=== PATIENT | male | born 1965 | race Caucasian/White ===

== ENCOUNTER → 2016-08-31 | Outpatient (CLI) | payer OTHER | LOC: LAB.O 10:08 | PROVIDERS: ATTEND Family Medicine | DX: E78.2 Mixed hyperlipidemia (principal) ==

== ENCOUNTER → 2016-10-07 | Outpatient (CLI) | payer OTHER | END | disposition home or self-care (01) | LOC: LAB.O 10:02 | PROVIDERS: ATTEND Orthopaedic Surgery | DX: Z09 Encounter for follow-up examination after completed treatment for conditions other than malignant neoplasm (principal); Z47.1 Aftercare following joint replacement surgery ==

== ENCOUNTER → 2018-01-01 | Outpatient (CLI) | payer OTHER | LOC: GMAH 09:30 | PROVIDERS: ATTEND Family Medicine | DX: E78.2 Mixed hyperlipidemia (principal) ==

== ENCOUNTER → 2018-06-18 | Outpatient (CLI) | payer OTHER | LOC: LAB.O 08:32 | PROVIDERS: ATTEND Family Medicine | DX: E29.1 Testicular hypofunction (principal) ==

== ENCOUNTER → 2019-09-08 | Outpatient (CLI) | payer BC | LOC: LAB.O 08:14 | PROVIDERS: ATTEND Orthopaedic Surgery | DX: Z01.818 Encounter for other preprocedural examination (principal) ==

== ENCOUNTER 2019-10-08 | Day surgery (SDC) | payer BC | END 2019-10-08 16:50 | disposition home or self-care (01) | DX: G56.21 Lesion of ulnar nerve, right upper limb (principal); G56.01 Carpal tunnel syndrome, right upper limb; I10 Essential (primary) hypertension; Z88.5 Allergy status to narcotic agent; Z79.899 Other long term (current) drug therapy | CPT/HCPCS: 01810; 64718; 64721; 80307; J0690; J1100; J1885; J2250; J2405; J2550; J2765; J2780; J3010; J3370; J3475; J3490; J7050; J7120 ==

== ENCOUNTER 2019-10-10 | Emergency (ER) | payer BC | END 2019-10-10 19:56 | disposition short-term general hospital (02) | DX: I48.91 Unspecified atrial fibrillation (principal); R00.0 Tachycardia, unspecified; R00.2 Palpitations; Z98.890 Other specified postprocedural states; Z88.5 Allergy status to narcotic agent; Z79.82 Long term (current) use of aspirin; Z79.899 Other long term (current) drug therapy | CPT/HCPCS: 36415; 71045; 80053; 84484; 85025; 85610; 85730; 93005; J7030; J7050 ==

== ENCOUNTER → 2019-11-13 | Outpatient (CLI) | payer BC | LOC: LAB.O 08:13 | PROVIDERS: ATTEND Internal Medicine | DX: I10 Essential (primary) hypertension (principal) ==

== ENCOUNTER → 2020-04-30 | Outpatient (CLI) | payer BC ==
--- NOTE | 2020-05-03 08:14 | RAD ---
Study: Frontal and Lateral Radiographs of the Chest. Indication: HEMOPTYSIS Comparison: October 10, 2019 Impression: Heart size mildly enlarged. Subtle increased density left midlung which may reflect atelectasis or pneumonia. Short term follow up recommended versus contrast-enhanced CT chest. No pleural effusion or pneumothorax. Degenerative changes of the spine noted. Electronically signed by: Zack Dinh MD 05/03/2020 8:12 AM CDT
== END ==
LOC: YCFC.O 13:44
PROVIDERS: ATTEND Nurse Practitioner Family
DX: R04.2 Hemoptysis (principal); I10 Essential (primary) hypertension; I51.7 Cardiomegaly; R91.8 Other nonspecific abnormal finding of lung field; M47.9 Spondylosis, unspecified

== ENCOUNTER 2020-05-26 05:42 | Day surgery (SDC) | payer BC ==
[2020-05-26] MEDS ORDERED: DEXAMETHASONE INJ 10 MG/ML VIAL ONE (07:00)
[2020-05-26] MEDS ORDERED: PROPOFOL 200 MG/20 ML VIAL IV ONE (07:00)
[2020-05-26] MEDS ORDERED: LACTATED RINGERS 1,000 ML ONE (07:15)
[2020-05-26] MEDS ORDERED: SODIUM CHL 0.9% 100ML MINI-BAG 100 ML IVPB ONE (07:15)
[2020-05-26] MEDS ORDERED: ceFAZolin SODIUM 1 GM VIAL ONE (07:15)
[2020-05-26] MEDS ORDERED: BUPIVACAINE 0.25% INJ 30 ML VIAL INJ ONE (07:22)
[2020-05-26] MEDS ORDERED: LIDOCAINE 1% 10 ML VIAL INJ ONE (07:22)
[2020-05-26] MEDS ORDERED: MIDAZOLAM INJ 2 MG/2 ML VIAL ONE (07:46)
[2020-05-26] MEDS ORDERED: fentaNYL CITRATE INJ 50 MCG/ML 2 ML AMP ONE (07:46)
[2020-05-26] MEDS: ceFAZolin SODIUM 1 GM VIAL ONE ×2 (08:24→08:32)
[2020-05-26] MEDS: VANCOMYCIN HCL INJ 1,000 MG VIAL IVPB ONE ×2 (08:25→08:32)
[2020-05-26 09:07] VITALS: TEMP 97.7
[2020-05-26 09:37] VITALS: BP 119/68; O2SAT 96
--- NOTE | 2020-05-28 13:26 | OP ---
DATE OF PROCEDURE: 05/26/20 PREOPERATIVE DIAGNOSIS: 1. Carpal tunnel syndrome. POSTOPERATIVE DIAGNOSIS: 1. Carpal tunnel syndrome. PROCEDURE: 1. Carpal tunnel release. SURGEON: Dimitri Vargas MD. FISHER OYSTER: Zach Wooten CST, TERA. ANESTHESIA: Local with sedation. COMPLICATIONS: None. FINDINGS: Thickening of the transverse carpal ligament and narrowing of the median nerve across the carpal tunnel. INDICATION: Yousuf has a history of symptoms consistent with carpal tunnel syndrome. Yousuf and I have discussed the risks, benefits and alternatives to operative therapy. He has given informed consent for the above procedure. PROCEDURE: The patient was brought to the Operating Room and placed in the supine position. Sedation was administered and local anesthetic was injected into the operative area under sterile conditions. After the injection of anesthetic, the arm was sterilely prepped and draped. A longitudinal incision was made directly overlying the transverse carpal ligament and blunt dissection was carried down to the ligament. The transverse carpal ligament was sharply transected along its length and a Reeves elevator was used to ensure complete release of the ligament. Once release had been confirmed, the wound was thoroughly irrigated and the wound was closed with Nylon suture. A sterile dressing was placed and the patient was taken to the Day Surgery Unit. POSTOPERATIVE PLAN: The patient will be doing range of motion of the digits and will followup with us in two days. #[id number] [facility]
== END 2020-05-26 09:25 | disposition home or self-care (01) ==
LOC: AMB 05:42
PROVIDERS: ATTEND Orthopaedic Surgery
DX: G56.02 Carpal tunnel syndrome, left upper limb (principal); I10 Essential (primary) hypertension; E66.01 Morbid (severe) obesity due to excess calories; R00.1 Bradycardia, unspecified; Z68.41 Body mass index [BMI] 40.0-44.9, adult; Z88.5 Allergy status to narcotic agent; Z79.01 Long term (current) use of anticoagulants; Z79.899 Other long term (current) drug therapy
CPT/HCPCS: 01810; 36415; 64721; 80048; 80307; 81001; 85025; 87070; 93005; J0690; J2250; J3010; J3370; J7050; J7120

== ENCOUNTER → 2020-08-02 | Outpatient (CLI) | payer BC ==
--- NOTE | 2020-08-02 10:03 | RAD ---
EXAM DESCRIPTION: Foot,Right 3 Views CLINICAL HISTORY: PAIN IN RIGHT FOOT COMPARISON: None. TECHNIQUE: 3 views right FINDINGS: Mild degenerative changes are observed in the metatarsal phalangeal joint of the first digit. Mild distal interphalangeal joint arthritis is observed. Intertarsal arthritis is seen. Achilles and plantar enthesophytes are observed. Some calcification of the plantar fascia is observed. Degenerative changes are observed in the tibial talar articulation. No fracture is detected. IMPRESSION: Degenerative changes are observed as detailed above. No fracturing is detected. Electronically signed by: Pk Ball MD 08/02/2020 10:01 AM [facility]
== END ==
LOC: RAD 07:49
PROVIDERS: ATTEND Orthopaedic Surgery
DX: M19.071 Primary osteoarthritis, right ankle and foot (principal)

== ENCOUNTER → 2020-08-25 | Outpatient (CLI) | payer BC ==
--- NOTE | 2020-08-26 09:13 | RAD ---
EXAM DESCRIPTION: Foot,Right 3 Views CLINICAL HISTORY: 54 years Male, closed fracture of secon metatarsal bone of right foot COMPARISON: August 02, 2020 FINDINGS: Partially united nondisplaced second metatarsal diaphyseal fracture with interval increase in amount of callus formation at the fracture site. No new abnormality or other significant interval change. Calcaneal enthesophyte formation at the plantar fascia and Achilles tendon insertions. IMPRESSION: Partially united second metatarsal diaphyseal fracture with interval increase in degree of union. Electronically signed by: Russ Estes MD 08/26/2020 9:11 AM [facility]
== END ==
LOC: RAD 14:26
PROVIDERS: ATTEND Orthopaedic Surgery
DX: S92.324D Nondisplaced fracture of second metatarsal bone, right foot, subsequent encounter for fracture with routine healing (principal)

== ENCOUNTER → 2020-09-02 | Outpatient (CLI) | payer BC ==
--- NOTE | 2020-09-02 13:17 | RAD ---
EXAM DESCRIPTION: Foot,Right 3 Views CLINICAL HISTORY: 54 years Male, CLOSED FX OF SECOND METATARSAL BONE COMPARISON: August 25, 2020 Findings: 3 view(s)/radiograph(s) Healing second metatarsal shaft fracture. Similar alignment. No new fracture. No dislocation. Lisfranc alignment is maintained. Similar degenerative changes. IMPRESSION: Healing right second metatarsal shaft fracture. Electronically signed by: Demarco Morris MD 09/02/2020 1:15 PM [facility]
== END ==
LOC: RAD 08:01
PROVIDERS: ATTEND Orthopaedic Surgery
DX: S92.324D Nondisplaced fracture of second metatarsal bone, right foot, subsequent encounter for fracture with routine healing (principal)